=== PATIENT | female | born 1985 | race African-American/Black ===

== ENCOUNTER 2024-07-11 08:06 | Emergency (ER) | payer MEDICAID ==
[~2024-07-11] VITALS: Ht 162.6 cm; Wt 90.7 kg
[2024-07-11] MEDS ORDERED: HYDROCODONE/APAP 10-325 MG TABLET ONE (08:49)
[2024-07-11] MEDS: HYDROCODONE/APAP 10-325 MG TABLET PO ONE (08:52)
[2024-07-11 09:19] LABS: CALCIUM 7.6 mg/dL (8.5-10.1); CREATININE 0.9 mg/dL (0.6-1.3); POTASSIUM 3.6 mmol/L (3.5-5.1)
[2024-07-11 09:20] LABS: BASOPHILS % (AUTO) 0.7 % (0.0-2.0); EOSINOPHILS # (AUTO) 0.5 K/uL (0.0-0.7); EOSINOPHILS % (AUTO) 7.5 % (0.0-7.0); HEMATOCRIT 36.2 % (31.2-41.9); HEMOGLOBIN 12.1 g/dL (10.9-14.3); LYMPHOCYTES % (AUTO) 27.2 % (20.5-51.5); MEAN CORPUSCULAR HEMOGLOBIN 31.6 uug (24.7-32.8); MEAN CORPUSCULAR HGB CONC 34 g/dL (32.3-35.6); MEAN CORPUSCULAR VOLUME 94.5 fL (75.5-95.3); MONOCYTES # (AUTO) 0.8 K/uL (0.1-1.30); MONOCYTES % (AUTO) 10.7 % (0.0-11.0); NEUTROPHILS # (AUTO) 3.9 K/uL (1.8-8.9); NEUTROPHILS % (AUTO) 53.9 % (38.5-71.5); PLATELET COUNT (AUTO) 278 K/uL (179-408); RED BLOOD CELL COUNT(AUTO) 3.83 MIL/uL (3.63-4.92); RED CELL DISTRIBUTION WIDTH 13.2 % (12.3-17.7); WHITE BLOOD COUNT (AUTO) 7.2 K/uL (3.8-11.8)
[2024-07-11 09:22] LABS: DIFFERENTIAL COMMENT 1
[2024-07-11 09:25] LABS: ALBUMIN 3.3 g/dL (3.4-5.0); BILIRUBIN,DIRECT 0.2 mg/dL (0.0-0.2); BILIRUBIN,TOTAL 0.5 mg/dL (0.2-1.0); TOTAL PROTEIN, SERUM 7.1 g/dL (6.4-8.2)
[2024-07-11 10:04] LABS: C-REACTIVE PROTEIN 0.67 mg/dL (0.00-0.30)
[2024-07-11] MEDS ORDERED: SSKI PO (10:08)
[2024-07-11] MEDS ORDERED: PRED20TA PO (10:08)
[2024-07-11] MEDS ORDERED: IBUP-1955 PO (10:08)
[2024-07-11 10:37] VITALS: BP 143/75; O2SAT 100
== END 2024-07-11 10:39 | disposition home or self-care (01) ==
LOC: ER 08:10
DX: L52 Erythema nodosum (principal); E83.51 Hypocalcemia; F12.90 Cannabis use, unspecified, uncomplicated; Z79.52 Long term (current) use of systemic steroids; Z98.891 History of uterine scar from previous surgery
CPT/HCPCS: 36415; 71045; 83735; 85025; 85651; 86140; A4606; A4663